=== PATIENT | male | born 1980 | race Caucasian/White ===

== ENCOUNTER 2017-06-07 21:40 | Emergency (ER) | payer OTHER ==
[~2017-06-07] VITALS: Ht 185.4 cm; Wt 100.0 kg
[~2017-06-07 21:40] MED LIST: IBUP-232 PO; Z.0.NO CURRENT MEDS
[2017-06-07 21:45] VITALS: BP 113/75; PULSE 88; RESP 16; TEMP 98.1; O2SAT 99
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
== END 2017-06-07 22:10 ==
LOC: NEDAMB 21:40
DX: S00.01XA Abrasion of scalp, initial encounter (principal); W22.8XXA Striking against or struck by other objects, initial encounter; Z72.0 Tobacco use; Z88.0 Allergy status to penicillin
CPT/HCPCS: 99281

== ENCOUNTER 2017-10-06 16:02 | Emergency (ER) | payer SELFPAY ==
[~2017-10-06] VITALS: Ht 188 cm; Wt 100.0 kg
[~2017-10-06 16:02] MED LIST changes: -IBUP-232 PO
[2017-10-06 16:03] VITALS: BP 138/81; PULSE 80; RESP 18; TEMP 98.7; O2SAT 99
[2017-10-06] MEDS ORDERED: BACT800T5 PO (17:32)
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
== END 2017-10-06 17:53 | disposition home or self-care (01) ==
LOC: NEPK 16:02
DX: M27.2 Inflammatory conditions of jaws (principal); L02.416 Cutaneous abscess of left lower limb; Z72.0 Tobacco use; Z88.0 Allergy status to penicillin
CPT/HCPCS: 10060